=== PATIENT | female | born 1970 | race American Indian/Alaskan Native ===

== ENCOUNTER 2019-09-19 08:15 | Observation (INO) | payer SELFPAY ==
[2019-09-19] MEDS ORDERED: ASPIRIN 325 MG TAB PO ONE (08:23)
[2019-09-19] MEDS ORDERED: ONDANSETRON 4 MG/2 ML INJ IV ONE (08:26)
[2019-09-19] MEDS ORDERED: fentaNYL 100 MCG/2 ML INJ IV ONE (08:26)
[2019-09-19] MEDS ORDERED: NITROGLYCERIN 2% OINT 1 GM TP ONE (08:26)
--- NOTE | 2019-09-19 08:32 | Emergency Department Report ---
HPI - General Chief Complaint: Chest Pain Time Seen by Provider: 09/19/19 08:20 - [facility] HPI: Room 23 The patient is a 48-year-old female present with a chief complaint of chest pain. The patient states she developed chest pain in the right chest at 07: 30 this morning. Patient describes the pain is constant throbbing and sharp in nature. Patient admits to shortness of breath and diaphoresis with her chest pain but denies nausea/vomiting. The patient states EMS was called and administered nitroglycerin which helped her pain. Patient denies ever having a stress test or cardiac catheterization ED Past Medical Hx - Past Medical History Previous Medical History?: No - Surgical History Additional Surgical History: Left knee surgery - Family History Family history: no significant - Social History Smoking Status: Current Some Day Smoker (Cigar) Substance Use Type: None (Denies illicit drug use), Alcohol (Occasional) - Medications Home Medications: Home Medications Medication Instructions Recorded Confirmed Last Taken Type No Known Home Medications [No 09/19/19 09/19/19 Unknown History Reported Home Medications] ED Review of Systems ROS: Stated complaint: CHEST PAIN Other details as noted in HPI Constitutional: diaphoresis Eyes: denies: eye pain ENT: denies: throat pain Respiratory: shortness of breath Cardiovascular: chest pain Endocrine: no symptoms reported Gastrointestinal: denies: nausea, vomiting Genitourinary: denies: dysuria Musculoskeletal: back pain Neurological: denies: headache Physical Exam - Physical Exam Vital Signs: Vital Signs 09/19/19 08:18 Pulse Rate 72 Respiratory 18 Rate Blood Pressure 152/78 Blood Pressure 152/72 [Left] O2 Sat by Pulse 97 Oximetry Physical Exam: GENERAL: The patient is well-developed well-nourished female lying on stretcher appearing to be in mild discomfort. [] HEENT: Normocephalic. Atraumatic. Extraocular motions are intact. Patient has moist mucous membranes. NECK: Supple. Trachea midline CHEST/LUNGS: Clear to auscultation. There is no respiratory distress noted. HEART/CARDIOVASCULAR: Regular. There is no tachycardia. There is no gallop rub or murmur. ABDOMEN: Abdomen is soft, nontender. Patient has normal bowel sounds. There is no abdominal distention. SKIN: There is no rash. There is no edema. There is no diaphoresis. NEURO: The patient is awake, alert, and oriented. The patient is cooperative. The patient has normal speech MUSCULOSKELETAL: There is no evidence of acute injury. ED Course Vital Signs 09/19/19 08:18 Pulse Rate 72 Respiratory 18 Rate Blood Pressure 152/78 Blood Pressure 152/72 [Left] O2 Sat by Pulse 97 Oximetry ED Medical Decision Making - Lab Data Result diagrams: 09/19/19 08:39 09/19/19 08:39 Laboratory Tests 09/19/19 09/19/19 09/19/19 08:39 08:39 08:39 WBC 7.3 RBC 3.88 Hgb 12.0 Hct 35.3 MCV 91 MCH 31 MCHC 34 RDW 13.4 Plt Count 219 Lymph % (Auto) 34.7 [place] % (Auto) 7.5 H Eos % (Auto) 3.2 Baso % (Auto) 0.5 Lymph # 2.5 [place] # 0.5 Eos # 0.2 Baso # 0.0 Seg Neutrophils % 54.1 Seg Neutrophils # 3.9 Sodium 142 Potassium 3.7 Chloride 106.0 Carbon Dioxide 25 Anion Gap 15 BUN 9 Creatinine 0.6 L Estimated GFR > 60 BUN/Creatinine Ratio 15 Glucose 112 H Calcium 8.7 Total Creatine Kinase 174 H CK-MB (CK-2) 1.3 CK-MB (CK-2) Rel Index 0.7 Troponin T < 0.010 Laboratory Tests 09/19/19 09/19/19 09/19/19 08:39 08:39 08:39 WBC 7.3 RBC 3.88 Hgb 12.0 Hct 35.3 MCV 91 MCH 31 MCHC 34 RDW 13.4 Plt Count 219 Lymph % (Auto) 34.7 [place] % (Auto) 7.5 H Eos % (Auto) 3.2 Baso % (Auto) 0.5 Lymph # 2.5 [place] # 0.5 Eos # 0.2 Baso # 0.0 Seg Neutrophils % 54.1 Seg Neutrophils # 3.9 D-Dimer 178.53 Sodium 142 Potassium 3.7 Chloride 106.0 Carbon Dioxide 25 Anion Gap 15 BUN 9 Creatinine 0.6 L Estimated GFR > 60 BUN/Creatinine Ratio 15 Glucose 112 H Calcium 8.7 Total Creatine Kinase CK-MB (CK-2) CK-MB (CK-2) Rel Index Troponin T < 0.010 09/19/19 08:39 WBC RBC Hgb Hct MCV MCH MCHC RDW Plt Count Lymph % (Auto) [place] % (Auto) Eos % (Auto) Baso % (Auto) Lymph # [place] # Eos # Baso # Seg Neutrophils % Seg Neutrophils # D-Dimer Sodium Potassium Chloride Carbon Dioxide Anion Gap BUN Creatinine Estimated GFR BUN/Creatinine Ratio Glucose Calcium Total Creatine Kinase 174 H CK-MB (CK-2) 1.3 CK-MB (CK-2) Rel Index 0.7 Troponin T - EKG Data -: EKG Interpreted by Me EKG shows normal: sinus rhythm Rate: bradycardia (51 bpm) - EKG Data When compared to previous EKG there are: previous EKG unavailable Interpretation: nonspecific ST-T wave sherri (T wave inversion in leads III, aVF, V3, V4) - Radiology Data Radiology results: report reviewed (Chest x-ray), image reviewed (Chest x-ray) interpreted by me: Chest x-ray-no focal infiltrates, no pneumothorax Findings [address] [address] XRay Report Signed Patient: BINTA MARTINEZ MR#: [id number] 0 : 1970 Acct:[id number] Age/Sex: 48 / F ADM Date: 09/19/19 Loc: ED Attending Dr: Ordering Physician: NATHANIEL NAIR MD Date of Service: 09/19/19 Procedure(s): XR chest 1V ap Accession Number(s): [id number] cc: NATHANIEL NAIR MD Fluoro Time In Minutes: CHEST 1 VIEW INDICATION / CLINICAL INFORMATION: Chest Pain. COMPARISON: None available. FINDINGS: SUPPORT DEVICES: None. HEART / MEDIASTINUM: No significant abnormality. LUNGS / PLEURA: No significant pulmonary or pleural abnormality. No pneumothorax. ADDITIONAL FINDINGS: No significant additional fin dings. IMPRESSION: 1. No acute findings. Signer Name: Vaughn Acharya MD Signed: 09/19/2019 9:06 AM Workstation Name: [id number] Transcribed By: BC Dictated By: Vaughn Acharya MD Electronically Authenticated By: Vaughn Acharya MD Signed Date/Time: 09/19/19905 DD/ 5 TD/TT: - Differential Diagnosis Chest pain Critical care attestation.: If time is entered above; I have spent that time in minutes in the direct care of this critically ill patient, excluding procedure time. ED Disposition Clinical Impression: Chest pain Disposition: DC-09 OP ADMIT IP TO THIS HOSP Is pt being admited?: Yes Does the pt Need Aspirin: Yes Condition: Fair Instructions: Chest Pain (ED) Time of Disposition: 10:08 (Hospitalist paged)
[2019-09-19 08:52] LABS: Basophils % (Auto) 0.5 % (0.0-1.8); Eosinophils # (Auto) 0.2 K/mm3 (0.0-0.4); Eosinophils % (Auto) 3.2 % (0.0-4.3); Hematocrit 35.3 % (30.3-42.9); Lymphocytes # (Auto) 2.5 K/mm3 (1.2-5.4); Lymphocytes % (Auto) 34.7 % (13.4-35.0); Mean Corpuscular HGB Conc 34 % (30-34); Mean Corpuscular Volume 91 fl (79-97); Monocytes # (Auto) 0.5 K/mm3 (0.0-0.8); Monocytes % (Auto) 7.5 % (0.0-7.3); Platelet Count 219 K/mm3 (140-440); Red Blood Count 3.88 M/mm3 (3.65-5.03); Red Cell Distribution Width 13.4 % (13.2-15.2)
--- NOTE | 2019-09-19 09:11 | XRay Report ---
CHEST 1 VIEW INDICATION / CLINICAL INFORMATION: Chest Pain. COMPARISON: None available. FINDINGS: SUPPORT DEVICES: None. HEART / MEDIASTINUM: No significant abnormality. LUNGS / PLEURA: No significant pulmonary or pleural abnormality. No pneumothorax. ADDITIONAL FINDINGS: No significant additional findings. IMPRESSION: 1. No acute findings. Signer Name: Vaughn Acharya MD Signed: 09/19/2019 9:06 AM Workstation Name: [id number]
[2019-09-19 09:12] LABS: BUN/Creatinine Ratio 15; Blood Urea Nitrogen 9 mg/dL (7-17); Calcium 8.7 mg/dL (8.4-10.2); Hemolysis Index 4
[2019-09-19 09:19] LABS: Creatine Kinase MB 1.3 ng/mL (0.0-4.0)
[2019-09-19] MEDS ORDERED: HYDROcodone/ACETAMINOPHEN 5-325 MG TAB PO PRN (11:51)
[2019-09-19] MEDS ORDERED: NITROGLYCERIN 0.4 MG TAB SUBL SL PRN (11:54)
--- NOTE | 2019-09-19 11:55 | History and Physical Report ---
History of Present Illness Date of examination: 09/19/19 Date of admission: 09/19/19 10:14 Chief complaint: Cough and chest pain History of present illness: The patient is a 48-year-old female present without any prior significant medical history presented to the hospital with a chief complaint of chest pain. The patient states she developed chest pain in the right chest at 07: 30 this morning. Patient describes the pain is constant throbbing and sharp in nature. Patient admits to shortness of breath and diaphoresis with her chest pain but denies nausea/vomiting. The patient states EMS was called and administered nitroglycerin which helped her pain. Patient denies ever having a stress test or cardiac catheterization. Following admission patient also complained of cough which is started from last 3 days and she expressed to be tested for COVID-19. Her cardiac enzymes in the ER has been negative. COVID-19 test as ordered, cardiology consulted and patient has been scheduled for stress test tomorrow morning. She is being admitted for observation and further evaluation and management. Past Medical Hx - Past Medical History Previous Medical History?: No - Surgical History Additional Surgical History: Left knee surgery - Family History Family history: no significant - Social History Smoking Status: Current Some Day Smoker (Cigar) Substance Use Type: None (Denies illicit drug use), Alcohol (Occasional) Review of System: Constitutional: no fever, no chills, no weight loss Ears, eyes, nose, mouth and throat: no nasal congestion, no nasal discharge, no sinus pressure, no vision change, no red eye. Neck: No neck pain or rigidity. Cardiovascular: + chest pain but now resolved, no orthopnea, no palpitations, no leg swelling Respiratory: No shortness of breath, + nonproductive cough, no congestion, no wheezing Gastrointestinal: no abdominal pain, no nausea, no vomiting Genitourinary : no dysuria, no hematuria Musculoskeletal: no joint swelling or muscle ache Integumentary: no rash, no pruritis Neurological: no parathesias, no numbness, no tingling Endocrine: no cold or heat intolerance, no polyuria or polydipsia Hematologic/Lymphatic: no easy bruising, no easy bleeding, no gland swelling Allergic/Immunologic: no urticaria, no angioedema. Medications and Allergies Allergies Allergy/AdvReac Type Severity Reaction Status Date / Time No Known Allergies Allergy Unverified 03/18/13 14:47 Home Medications Medication Instructions Recorded Confirmed Last Taken Type Aspirin EC [Halfprin EC] 81 mg PO QDAY #30 tablet. 09/20/19 Unknown Rx AtorvaSTATin [Lipitor] 40 mg PO QHS #30 tablet 09/20/19 Unknown Rx amLODIPine 10 mg PO QDAY #30 tablet 09/20/19 Unknown Rx lisinopriL [Zestril TAB] 10 mg PO QDAY #30 tablet 09/20/19 Unknown Rx Active Meds: Active Medications Acetaminophen (Tylenol) 650 mg PO Q4H PRN PRN Reason: Pain MILD(1-3)/Fever >100.5/SOLIS Acetaminophen/Hydrocodone Bitart ([place] 5/325) 2 each PO Q6H PRN PRN Reason: Pain, Moderate (4-6) Aspirin (Ecotrin) 325 mg PO QDAY ИРИНА Atorvastatin Calcium (Lipitor) 40 mg PO QHS ИРИНА Famotidine (Pepcid) 10 mg PO BID ИРИНА Labetalol HCl (Labetalol) 10 mg IV Q4H PRN PRN Reason: Hypertension Exam - Physical Exam Narrative exam: GENERAL: well-developed obese white female lying on bed appeared to be in no discomfort. HEENT: Normocephalic. Atraumatic. No conjunctival congestion or icterus. Patient has moist mucous membranes. NECK: Supple. Trachea midline. CHEST/LUNGS: Clear to auscultated bilaterally, breathing nonlabored. No wheezes crackles or rhonchi. HEART/CARDIOVASCULAR: Regular in rate and rhythm. S1 and S2 positive. ABDOMEN: Abdomen is soft, nontender. Patient has normal bowel sounds. SKIN: There is no rash. Warm and dry. NEURO: No focal motor deficit. Follows command. MUSCULOSKELETAL: No joint effusion or tenderness. EXTRIMITY: No edema, no cyanosis or clubbing. PSYCH: Cooperative. - Constitutional Vitals: Temp Pulse Resp BP Pulse Ox 97.9 F 51 L 12 151/76 99 09/19/19 11:17 09/19/19 11:17 09/19/19 11:16 09/19/19 11:16 09/19/19 11:16 HEART Score - HEART Score Troponin: Troponin T < 0.010 ng/mL (0.00-0.029) 09/19/19 08:39 Results - Labs CBC & Chem 7: 09/19/19 08:39 09/19/19 19:19 Labs: Abnormal lab results 09/19/19 09/19/19 09/19/19 Range/Units 08:39 08:39 08:39 [place] % (Auto) 7.5 H (0.0-7.3) % Creatinine 0.6 L (0.7-1.2) mg/dL Glucose 112 H (65-100) mg/dL Total Creatine Kinase 174 H (30-135) units/L - Imaging and Cardiology Chest x-ray: report reviewed (No acute findings) Assessment and Plan Acute chest pain, need to rule out ACS - will admit to telemetry bed - monitor with serial CE and EKG - will place on Aspirin, statin - as needed SL NTG and iv morphin for pain - Monitor BP, add ACEI if BP tolerates - Hold beta-adelina for sinus bradycardia - order 2D echo and stress test in the am - cardiac diet now, NPO after midnight -Consult placed for cardiology Suspected COVID 19 - states Cough developed 3 days ago, ordered for COVID Sinus bradycardia, continue to monitor, hold beta-adelina Obesity, diet and exercise recommendation when medically stable - provide DVT Px with lovenox -Full code
[2019-09-19] MEDS: FAMOTIDINE 10 MG TAB PO SCH ×2 (15:15→23:39)
[2019-09-19 20:06] LABS: C-Reactive Protein 0.3 mg/dL (0.00-1.30)
[2019-09-19] MEDS: ACETAMINOPHEN 325 MG TAB PO PRN (23:45)
[2019-09-20] MEDS ORDERED: REGADENOSON 0.4 MG/5 ML INJ IV ONE (08:08)
[2019-09-20] MEDS: ACETAMINOPHEN 325 MG TAB PO PRN (08:36)
[2019-09-20] MEDS: FAMOTIDINE 10 MG TAB PO SCH (09:17)
[2019-09-20] MEDS ORDERED: ASPIRIN EC 325 MG TAB PO SCH (10:00)
--- NOTE | 2019-09-20 11:30 | Progress Note ---
Subjective Date of service: 09/20/19 Interval history: COVID TEST RESULTS PENDING SO THE PT WAS NOT EXAMINED S/P CVP - POSSIBLE ANGINA,,,NEGATIVE TROPONINS ABN. EKG WITH LOW VOLTAGE & ABNORMAL T'S ECHO: NL EF PLAN: STRES WHEN COVID TEST BACK,, POSSIBLY TOMORROW Objective Vital Signs Temp Pulse Resp BP Pulse Ox 09/20/19 05:39 97.9 F 53 L 20 150/59 97 09/19/19 23:39 97.2 F L 56 L 20 156/78 94 09/19/19 18:52 98.3 F 50 L 20 138/65 96 09/19/19 18:03 98 F 09/19/19 17:58 62 18 141/85 100 09/19/19 13:45 18 09/19/19 12:30 54 L 09/19/19 12:27 98.0 F 18 148/68 09/19/19 12:00 44 L 13 145/80 98 09/19/19 11:45 45 L 13 158/85 98 09/19/19 11:30 57 L 17 132/74 100 - Labs and Meds Cardiac Enzymes 09/19/19 Range/Units 19:19 Lactate Dehydrogenase 180 (91-180) units/L Comprehensive Metabolic Panel 09/19/19 Range/Units 19:19 Glucose 122 H (65-100) mg/dL
[2019-09-20] MEDS ORDERED: LISINOPRIL 10 MG TAB PO SCH (12:00)
[2019-09-20] MEDS ORDERED: amLODIPine 10 MG TAB PO SCH (12:00)
[2019-09-20 12:39] VITALS: BP 136/72
--- NOTE | 2019-09-20 15:00 | Discharge Summary ---
Providers - Providers Date of Admission: 09/19/19 10:14 Date of discharge: 09/20/19 Attending physician: EVER LYNN 09/19/19 11:54 Consult to Physician [CONS] Routine Comment: Consulting Provider: CHANNING MEDINA Physician Instructions: Reason For Exam: chest pain Primary care physician: [employer] Hospitalization Condition: Fair Pertinent studies: Chest x-ray, 2D echocardiogram Hospital course: 48-year-old white female with a no prior medical history presented to the ER with complaints of Retrosternal chest pain which started in the morning of her admission day along with nonproductive cough for last 3 days. Patient was evaluated in the ER, initial cardiac enzyme and EKG was unremarkable, chest x- ray showed no infiltrates. Patient is negative for COVID-19, 2D echo showed preserved EF, serum troponin normal. Patient was seen by cardiology and recommended stress test. But her stress test was canceled today because she was waiting for COVID-19 result. Patient states that she would like to get stress test as an outpatient and follow-up with the cardiology since her chest pain has resolved following admission and did not recur. Patient was discharged home in stable condition with outpatient follow-up. DISCHARGE DIAGNOSIS: Acute chest pain, need to rule out ACS -likely from GERD, patient will do stress test as outpatient Suspected COVID 19 -ruled out - states Cough developed 3 days ago, ordered for COVID -test result was negative htn, PLACED ON NORVASC AND LISINOPRIL Sinus bradycardia, continue to monitor, NO beta-adelina, preserved EF on 2D echocardiogram Obesity, diet and exercise recommendation when medically stable - provide DVT Px with lovenox -Full code Disposition: - TO HOME OR SELFCARE Time spent for discharge: 34 MINUTES Core Measure Documentation - Palliative Care Palliative Care/ Comfort Measures: Not Applicable - Core Measures Any of the following diagnoses?: none Exam - Physical Exam Narrative exam: GENERAL: well-developed obese white female lying on bed appeared to be in no discomfort. HEENT: Normocephalic. Atraumatic. No conjunctival congestion or icterus. Patient has moist mucous membranes. NECK: Supple. Trachea midline. CHEST/LUNGS: Clear to auscultated bilaterally, breathing nonlabored. No wheezes crackles or rhonchi. HEART/CARDIOVASCULAR: Regular in rate and rhythm. S1 and S2 positive. ABDOMEN: Abdomen is soft, nontender. Patient has normal bowel sounds. SKIN: There is no rash. Warm and dry. NEURO: No focal motor deficit. Follows command. MUSCULOSKELETAL: No joint effusion or tenderness. EXTRIMITY: No edema, no cyanosis or clubbing. PSYCH: Cooperative. - Constitutional Vitals: Temp Pulse Resp BP Pulse Ox 98.9 F 51 L 16 136/72 97 09/20/19 12:18 09/20/19 12:18 09/20/19 12:18 09/20/19 12:18 09/20/19 12:18 Plan Activity: advance as tolerated Weight Bearing Status: Weight Bear as Tolerated Diet: low fat, low salt Special Instructions: record daily BP diary Additional Instructions: Myocardial stress test as outpatient IN ONE WEEK Follow up with: PRIMARY MD LULA [Primary Care Provider] - 7 Days MINNIE MADRID MD [Staff Physician] - 7 Days Forms: Work/School Release Form Prescriptions: AtorvaSTATin [Lipitor] 40 mg PO QHS #30 tablet amLODIPine 10 mg PO QDAY #30 tablet Aspirin EC [Halfprin EC] 81 mg PO QDAY #30 tablet. lisinopriL [Zestril TAB] 10 mg PO QDAY #30 tablet
== END 2019-09-20 16:30 | disposition home or self-care (01) ==
LOC: ED 08:15 → 4A 10:14 → 3A 18:55
PROVIDERS: ADMIT Internal Medicine; ATTEND Internal Medicine
DX: R07.89 Other chest pain (principal); Z20.828 Contact with and (suspected) exposure to other viral communicable diseases; R00.1 Bradycardia, unspecified; E66.9 Obesity, unspecified; F17.210 Nicotine dependence, cigarettes, uncomplicated; Z68.38 Body mass index [BMI] 38.0-38.9, adult; Z79.82 Long term (current) use of aspirin; Z98.890 Other specified postprocedural states
CPT/HCPCS: 36415; 71045; 80048; 82550; 82553; 82728; 82947; 83615; 84145; 84484; 85025; 85379; 86140; 93005; 93306; 96374; 96375; 99285; 99406; A9270; G0378; J2405; J3010; U0003